=== PATIENT | male | born 1980 | race American Indian/Alaskan Native ===

== ENCOUNTER 2025-09-26 19:56 | Emergency (ER) | payer MEDICARE, MEDICAID, SELFPAY ==
[2025-09-26 19:56] VITALS: BMI 36.3
[2025-09-26 21:18] VITALS: BP 166/104; PULSE 65; RESP 20; TEMP 36.9; O2SAT 98
--- NOTE | 2025-09-26 21:54 | XR_ITS ---
Examination: CT chest, without intravenous contrast. CT abdomen, without intravenous contrast. CT pelvis, without intravenous contrast. 2-D sagittal and coronal reconstructions. 3-D reconstructions. Date and time of exam: September 26, 2025, 10:23 p.m. INDICATIONS: Right-sided pain and bulge beginning 1 month ago CTDI vol (mgy) 12.3 DLP (MGycm) 989 Technique: Multiple CT images, 3.0 mm slice thickness, obtained chest, abdomen, pelvis, with the high-resolution 64 slice scanner.. Sagittal and coronal 2-D reconstructions are obtained. 3-D reconstructions Low dose protocols were performed. One or more of the following dose reduction techniques were used; automated exposure control, adjustment of the mA and/or KV according to patient size, use of iterative reconstruction technique. Findings: No thoracic aortic aneurysmal dilatation Pulmonary artery segments are not enlarged. No paratracheal tracheobronchial or bronchopulmonary adenopathy No visualized liver or splenic lesion Contracted gallbladder No pancreatic or adrenal mass Mild renal scar formation, no hydronephrosis or renal calculi No bowel obstruction Normal appendix No diverticulitis No prostatomegaly Bladder intact Moderate disc narrowing L5-S1 IMPRESSION: No acute process in the chest Mild renal scar formation, no hydronephrosis or renal calculi Normal appendix No bowel obstruction diverticulitis or free air Suggest Ultrasil soft tissue follow-up of any palpable mass anterior abdomen
--- NOTE | 2025-09-26 21:54 | XR_ITS ---
EXAMINATION: PA chest single view TECHNIQUE: Upright PA chest single view Date and time: April 26 25, 2158 hours INDICATIONS: Onset shortness of breath today. FINDINGS: Mild prominence left ventricle No pneumonia or pulmonary edema. Intact osseous structures IMPRESSION: No active disease
--- NOTE | 2025-09-26 21:54 | EKG_ITS ---
[facility] Test Date: 2025-09-26 Pat Name: CR HENDRIX Department: Room: - Gender: Male [employer] Maintenance: : 1980 Requested By: Andres Thomas Order Number: [id number] Reading MD: Andres Thomas Measurements Intervals [place] Rate: 61 P: -3 MO: 204 QRS: -9 QRSD: 114 T: -11 QT: 406 QTc: 410 Interpretive Statements SINUS RHYTHM POSSIBLE ANTERIOR MYOCARDIAL INFARCTION , OF INDETERMINATE AGE [30 ms Q WAVE IN V3/V4, OR R < 0.2 mV IN V4] No previous ECG available for comparison /[id number]/[email or web address]/[id number].pdf
--- NOTE | 2025-09-26 21:54 | XR_ITS ---
Examination: CT brain head without contrast. 2-D sagittal coronal reconstructions Date and time of exam: September 26, 2025, 10:20 p.m. INDICATIONS: Altered mental status beginning 2 weeks ago CTDI: vol (mGy): 50 DLP: (mGycm): 1023 Technique: Multiple CT axial sections of the brain have been obtained, 5 mm slice thickness. Contrast has not been administered. 2-D sagittal, coronal reconstructions have been obtained Low dose protocols were performed. One or more of the following dose reduction techniques were used; automated exposure control, adjustment of the mA and/or KV according to patient size, use of iterative reconstruction technique. Findings: No significant ventricular enlargement. Intra-axial or extra-axial hemorrhage density is not seen. No mass effect or midline shift Basal cisterns are not remarkable. Fourth ventricle is midline. Cranial vault intact. Impression: Negative for acute hemorrhage, mass effect or midline shift Advise clinical correlation and follow-up accordingly
--- NOTE | 2025-09-26 21:54 | XR_ITS ---
Examination: Abdomen sonogram, Limited Date and time of exam: September 26, 2025, 10 0 5:00 p.m. INDICATIONS: Right upper abdominal pain and tenderness distention 2 days Technique: Real-time hare scale transabdominal sonographic images of the upper abdomen obtained. Findings: Normal gallbladder Normal common bile duct 0.5 cm Pancreatic head 2.8 cm Liver 18.9 cm fatty infiltration Normal hepatopetal portal venous flow Patent IVC IMPRESSION: Normal gallbladder Moderate hepatomegaly fatty infiltration
--- NOTE | 2025-09-26 21:55 | EDNOTE_ITS ---
ED Abdominal Pain RME/HPI General Chief Complaint: Abdominal Pain Stated complaint: RUQ PAIN Time seen by provider: 09/26/25 22:19 Arrival date/time: 09/26/25 19:56 RME / HPI RME / HPI narrative: See MDM for Dr. Romero's HPI Documentation. Related Data Allergies Allergy/AdvReac Type Severity Reaction Status Date / Time No Known Allergies Allergy Verified 11/20/23 07:30 Review of Systems Review of Systems Systems Reviewed: All systems reviewed, normal except as documented Past Medical History Social History SMOKING STATUS: Former smoker ED Exam Narrative Physical exam: See MDM for Dr. Romero's Physical Exam Documentation. Course Quality Measures none Orders Category Date Time Status Bedside COVID-19 Antigen Test NOW Care 09/26/25 21:53 Completed Bedside Influenza A&B Antigen Test NOW Care 09/26/25 21:53 Completed EKG (ED ONLY) *Do not use* NOW Care 09/26/25 21:54 Completed Saline [Insert IV] NOW Care 09/26/25 21:[address] chest abdomen pelvis wo Stat Exams 09/26/25 21:[address] head/brain wo con Stat Exams 09/26/25 21:54 Completed EKG (ED Only) Stat Exams 09/26/25 21:54 Draft US gall bladder Stat Exams 09/26/25 21:54 Completed XR chest 1V portable Stat Exams 09/26/25 21:54 Completed Alcohol, Blood Medical Stat Lab 09/26/25 22:35 Completed Ammonia Stat Lab 09/26/25 22:35 Completed Amylase Stat Lab 09/26/25 22:35 Completed BNP [B-Type Natriuretic Peptide] Stat Lab 09/26/25 22:35 Completed Bilirubin,Direct Stat Lab 09/26/25 22:35 Completed CBC Stat Lab 09/26/25 22:35 Completed CK [Creatine Kinase] Stat Lab 09/26/25 22:35 Completed CMP [Comprehensive Metabolic Panel] Stat Lab 09/26/25 22:35 Completed Drug Screen,Urine Stat Lab 09/27/25 00:12 Completed Hemoglobin A1C [Glycohemoglobin w (eAG)] Stat Lab 09/26/25 22:35 Completed Lipase Stat Lab 09/26/25 22:35 Completed Magnesium Stat Lab 09/26/25 22:35 Completed PT [Prothrombin Time with INR] Stat Lab 09/26/25 22:35 Completed PTT [Partial Thromboplastin Time] Stat Lab 09/26/25 22:35 Completed TSH [Thyroid Stimulating Hormone] Stat Lab 09/26/25 22:35 Completed Troponin I Stat Lab 09/26/25 22:35 Completed UA, C/S IF [Urinalysis, C/S if Indicated] Stat Lab 09/27/25 00:12 Completed VBG [Venous Blood Gas] Stat Lab 09/26/25 22:35 Completed Albuterol/Ipratr Rt Shweta [Duoneb Rt Shweta] Med 09/26/25 21:55 Discontinued 3 ml INH X1 ONE Ketorolac Inj [Toradol Inj] Med 09/26/25 21:53 Discontinued 30 mg IVP X1 ONE LORazepam [Ativan Inj] Med 09/26/25 21:53 Discontinued 2 mg IVP X1 ONE MethylPREDNISolone.* [SoluMEDROL Inj] Med 09/26/25 21:55 Discontinued 125 mg IVP X1 ONE Ondansetron Inj [Zofran Inj] Med 09/26/25 21:53 Discontinued 4 mg IVP X1 ONE POTASSIUM CHL 10% Liq 15 ML Med 09/26/25 23:30 Discontinued 40 meq PO X1 ONE Ringers Lactated 1000 ml [Lactated Ringers] 1,000 ml Med 09/26/25 23:30 Discontinued IV 1,000 mls/hr Sodium Chloride 0.9% 1000 ml [Ns] 1,000 ml Med 09/26/25 21:53 Discontinued IV 999 mls/hr Thiamine Inj [Vitamin B-1 Inj] Med 09/26/25 21:53 Discontinued 100 mg IVP X1 ONE Vital Signs Vital signs: Vital Signs Temperature 98.4 F 09/26/25 21:18 Pulse Rate 65 09/26/25 21:18 Respiratory Rate 20 09/26/25 21:18 Blood Pressure 166/104 H 09/26/25 21:18 Pulse Oximetry (%) 98 09/26/25 21:18 Oxygen Delivery Method Room Air 09/26/25 21:18 Abdominal Pain MDM MDM Narrative MDM Narrative:: This section includes all my notes and documentations, including HPI, PE, and ED course. Andres Romero MD HPI: 45 y/o male with Hx of Alcohol Dependence here with multiple concerns. He has trouble describing his symptoms. Including the onset and exacerbating factors and relieving factors and quality and quantity of the symptoms. Admits to drinking alcohol heavily and regularly. But didn't drink for about a week. He is concerned about radon exposure from neighborhood water a few weeks ago. His symptoms include headache and dizziness and chest pain and shortness of breath abdominal pain. No seizures. No hallucinations. No shaking. No other complaints. ROS: All negative except as documented in HPI. Physical Exam: General: Alert and oriented. No acute distress. Eyes: Conjunctivae and lids clear. EOMI. PERRL. ENT: No nasal congestion. Pharynx normal. Tympanic membrane normal bilaterally. Neck: Supple. No carotid bruit. No JVD. Heart: RRR. Lungs: No respiratory distress. Good air movement with scattered rhonchi. Chest: No tenderness. Abdomen: Soft with equivocal tenderness, difficult to localize. Normal bowel sounds. No distension. No rebound or guarding. Back: No CVA tenderness. Legs: No clubbing, cyanosis, edema. Skin: Warm and dry. Neuro: Alert and oriented X 3. Cranial Nerves II-XII grossly intact. No peripheral motor deficits. Musculoskeletal: All major joints and bones are not tender with no limited ROM. I reviewed all diagnostic test results: My interpretation of the EKG is: Sinus rhythm (61 bpm) with nonspecific ST-T changes. My interpretation of the chest x-ray is: NAD. My review of the Head/Brain CT report is: No acute findings. My review of the Chest/Abdomen/Pelvis CT report is: NAD. My review of the Gallbladder US report is: NAD. Blood tests and urine tests Covid/Influenza: Negative. At this point, diagnoses include: Alcohol Abuse Treatment here included: IVF Zofran 4 mg IV Toradol 30 mg IV Ativan 2 mg IV Thiamine 100 g IV Solu-Medrol 125 mg IV DuoNeb He felt much better. I discussed the case with our hospitalist.? About the presentation and exam and diagnostics and treatments here.? And need of further care in the hospital.? Recommended outpatient care. Based on my best medical judgment, made decision no further evaluation or treatment indicated at this time. Patient understands and agrees to the discharge instructions customized and printed, see below. Discharge Instructions from Dr. Romero printed for you: 1.? After extensive evaluation, there is no life-threatening condition.? Such as stroke or brain tumor or heart attack or pulmonary embolism (blood clots in your lungs) or pneumothorax (collapsed lung). 2.? Your symptoms are mostly due to alcohol abuse. Congratulations for not drinking for a week. 3.? Eat regular nutritious meals. For good hydration, increase oral fluid and maintain clear urine.? If dark or yellow, increase oral fluid. 4.? Take multivitamin and folic acid 1 mg and thiamine 50 mg every day as prescribed. 5.? Take [id number] omeprazole every morning and famotidine every evening as needed for upper abdominal pain 6.? See a private doctor on 09/28/2020 for recheck and further care. Ask for help to quit alcohol without alcohol withdrawal. Ask to review all test results and official radiology reports, to make sure you receive all necessary follow-ups and monitoring. To make sure there is no serious intra-abdominal condition, ask for help with more investigation not available here in the ER.? Such as EGD or scoping the stomach, colonoscopy or scoping the colon, and referral to see gastroenterolog ist. 7.? Seek immediate medical care with worsening or with any concerns. Andres Romero MD Patient data External records reviewed:: [facility] previous records (Reviewed prior ED records from 11/20/23. Patient was seen for Acute streptococcal pharyngitis.) Clinical information provided by:: patient Social determinants that could affect healthcare access:: alcohol use Patient has the following chronic illnesses:: None reported How is presenting disease/condition affected by chronic disease/condition?: no chronic disease Evaluation data The following diagnostics were reviewed and interpreted by me:: lab results, radiology exam(s) and EKG tracing(s) (My interpretation of the EKG is: Sinus rhythm (61 bpm) with nonspecific ST-T changes. Andres Romero MD) Lab and/or radiology exams considered but not ordered:: None Interpretation Summary: I reviewed all diagnostic test results: My interpretation of the EKG is: Sinus rhythm (61 bpm) with nonspecific ST-T changes. My interpretation of the chest x-ray is: NAD. My review of the Head/Brain CT report is: No acute findings. My review of the Chest/Abdomen/Pelvis CT report is: NAD. My review of the Gallbladder US report is: NAD. Blood tests and urine tests Covid/Influenza: Negative. Medications / Prescriptions Medications or Prescriptions considered but not ordered:: None Medication administrations:: Medication Administration History Discontinued Medications Albuterol/Ipratropium (Albuterol/Ipratropium (Duoneb) Rt Shweta 3 Ml Nebu) 3 ml INH X1 ONE Stop: 09/26/25 21:56 Last Admin: 09/26/25 23:14 Dose: 3 ml Documented By: DARIA Sodium Chloride (Ns) 1,000 mls @ 999 mls/hr IV .Q1H1M ONE Stop: 09/26/25 22:53 Last Infusion: 09/27/25 00:07 Dose: Infused Documented By: Admin: 09/26/25 22:55 Dose: 999 mls/hr Documented By: YURY Lactated Ringer's (Lactated Ringers) 1,000 mls @ 1,000 mls/hr IV .Q1H ONE Stop: 09/27/25 00:29 Last Infusion: 09/27/25 02:29 Dose: Infused Documented By: Admin: 09/27/25 00:12 Dose: 1,000 mls/hr Documented By: EE Ketorolac Tromethamine (Ketorolac Inj 30 Mg/Ml Vial) 30 mg IVP X1 ONE Stop: 09/26/25 21:54 Last Admin: 09/26/25 22:56 Dose: 30 mg Documented By: EE Lorazepam (Lorazepam 2 Mg/Ml Vial) 2 mg IVP X1 ONE Stop: 09/26/25 21:54 Last Admin: 09/26/25 22:56 Dose: 2 mg Documented By: EE Methylprednisolone Sodium Succinate (Methylprednisolone Sod Succ 62.5 Mg/Ml 2ml Vial) 125 mg IVP X1 ONE Stop: 09/26/25 21:56 Last Admin: 09/26/25 22:56 Dose: 125 mg Documented By: EE Ondansetron HCl (Ondansetron Inj 2 Mg/Ml Inj 2 Ml) 4 mg IVP X1 ONE; Protocol Stop: 09/26/25 21:54 Last Admin: 09/26/25 22:56 Dose: 4 mg Documented By: EE Potassium Chloride (Potassium Chloride 10% 20 Meq/15 Ml Udc) 40 meq PO X1 ONE Stop: 09/26/25 23:31 Last Admin: 09/27/25 00:12 Dose: 40 meq Documented By: EE Thiamine HCl (Thiamine Inj 100 Mg/Ml Vial 2 Ml) 100 mg IVP X1 ONE Stop: 09/26/25 21:54 Last Admin: 09/26/25 22:57 Dose: 100 mg Documented By: YURY Treatment here included: IVF Zofran 4 mg IV Toradol 30 mg IV Ativan 2 mg IV Thiamine 100 g IV Solu-Medrol 125 mg IV DuoNeb Consultations Consultation(s) initiated? (list below): Yes Consultation #1 (Physician, Specialty, Details): I discussed the case with our hospitalist.? About the presentation and exam and diagnostics and treatments here.? And need of further care in the hospital.? Recommended outpatient care. Time: Diagnosis Differential diagnosis abdominal pain: acute appendicitis, calculus of kidney, constipation, diverticulitis, gastroenteritis, pancreatitis and small bowel obstruction Most likely diagnosis given after review of the tests above:: Alcohol Abuse Admission Indicated Admission indicated?: not indicated Explain why admission is indicated or not indicated:: With significant improvement and no condition needing emergent intervention, there was no indication for admission. Admission Request Was there a request for admission?: No Disposition Plan Disposition Plan: Discharge Discharge Attestation Discharge Attestation: The patient and all family members were given an opportunity to ask questions and understood the discharge instructions. Discharge instructions specifically effects, indications for sooner follow up or return to the emergency department, and the expected course of current diagnosis. Patient condition: Stable Discharge Plan Plan Patient Disposition: HOME (Self Care) Prescriptions/Referrals Referrals: No Primary/Family,Physician [Primary Care Provider] - In 1 week Problem List Clinical Impression: Alcohol abuse Patient/Caregiver Discharge Instructions Discharge Activity: activity as tolerated Education Materials: ED Alcohol Abuse Additional Instructions: Discharge Instructions from Dr. Romero printed for you: 1.? After extensive evaluation, there is no life-threatening condition.? Such as stroke or brain tumor or heart attack or pulmonary embolism (blood clots in your lungs) or pneumothorax (collapsed lung). 2.? Your symptoms are mostly due to alcohol abuse. Congratulations for not drinking for a week. 3.? Eat regular nutritious meals. For good hydration, increase oral fluid and maintain clear urine.? If dark or yellow, increase oral fluid. 4.? Take multivitamin and folic acid 1 mg and thiamine 50 mg every day as p rescribed. 5.? Take [id number] omeprazole every morning and famotidine every evening as needed for upper abdominal pain 6.? See a private doctor on 09/28/2020 for recheck and further care. Ask for help to quit alcohol without alcohol withdrawal. Ask to review all test results and official radiology reports, to make sure you receive all necessary follow-ups and monitoring. To make sure there is no serious intra-abdominal condition, ask for help with more investigation not available here in the ER.? Such as EGD or scoping the stomach, colonoscopy or scoping the colon, and referral to see g astroenterologist. 7.? Seek immediate medical care with worsening or with any concerns. Print Language: Wolof Stand Alone Forms: Kalina Award Info., Patient Portal Info Letter
[2025-09-26 22:42] LABS: Base Excess, Venous 3 (-3-3); O2 Saturation, Venous 89 % (96-97); PCO2, Venous 33 mmHg (36-56); PO2, Venous 47 mmHg (15-58); pH, Venous 7.50 (7.33-7.66)
[2025-09-26 22:46] LABS: Basophils # (Auto) 0.1 Thou/mm3 (0.0-0.2); Basophils % (Auto) 2 % (0-2.5); Eosinophils # (Auto) 0.6 Thou/mm3 (0.0-0.5); Eosinophils % (Auto) 7 % (0-10); Hematocrit 50.3 % (41.0-53.0); Hemoglobin 18.6 g/dL (13.5-16.0); Immature Granulocytes Auto 0.02 Thou/mm3 (0.00-0.00); Lymphocytes # (Auto) 2.5 Thou/mm3 (1.0-4.8); Lymphocytes % (Auto) 30 % (10-50); Mean Corpuscular HGB Conc 37.0 g/dl (31.0-37.0); Mean Corpuscular Hemoglobin 33.8 pg (25.0-35.0); Mean Corpuscular Volume 91 fL (80-100); Monocytes # (Auto) 0.9 Thou/mm3 (0.0-0.8); Monocytes % (Auto) 11 % (0-12); Neutrophils # (Auto) 4.2 Thou/mm3 (1.8-7.7); Neutrophils % (Auto) 50 % (37-80); Nucleated Red Blood Cell # 0.00 Thou/mm3 (0.00-0.00); Nucleated Red Blood Cell % 0 /100 WBC (0); Platelet Count 280 Thou/mm3 (140-440); RDW Standard Deviation 43.8 fL (35.1-43.9); Red Blood Count 5.51 Miln/mm3 (4.50-5.90); White Blood Count 8.5 Thou/mm3 (3.8-10.6)
[2025-09-26] MEDS: SODIUM CHLORIDE 0.9% 1000 ML 1,000 ML 999 ML IV (22:55)
[2025-09-26] MEDS: MethylPREDNISolone SOD SUCC 62.5 MG/ML 2ML VIAL 125 MG IVP (22:56)
[2025-09-26] MEDS: LORazepam 2 MG/ML VIAL IVP (22:56)
[2025-09-26] MEDS: ONDANSETRON INJ 2 MG/ML INJ 2 ML 4 MG IVP (22:56)
[2025-09-26] MEDS: KETOROLAC INJ 30 MG/ML VIAL IVP (22:56)
[2025-09-26] MEDS: THIAMINE INJ 100 MG/ML VIAL 2 ML IVP (22:57)
[2025-09-26 23:00] VITALS: BP 192/142; PULSE 69; RESP 18; TEMP 36.7; O2SAT 98
[2025-09-26 23:00] LABS: INR 1.1 (0.9-1.3); Partial Thromboplastin Time 28.2 Seconds (22.0-36.0); Prothrombin Time 11.4 Seconds (9.0-12.2)
[2025-09-26 23:08] LABS: Glucose Estimated Average 108 mg/dL (80-131); Hemoglobin A1C 5.4 % Hgb (4.8-6.0)
[2025-09-26 23:09] LABS: B-Type Natriuretic Peptide < 20 pg/mL (0-100)
[2025-09-26 23:12] LABS: Ammonia < 10 uMol/L (11-32)
[2025-09-26 23:14] LABS: Alanine Aminotransferase 36 U/L (10-49); Albumin, Serum 4.4 gm/dL (3.5-5.0); Albumin/Globulin Ratio 1.5 (1.2-2.2); Alcohol, Blood Medical < 3.0 mg/dL (0-10.0); Alkaline Phosphatase 69 U/L (46-116); Amylase 81 U/L (30-118); Anion Gap 10 (7-16); Aspartate Amino Transferase 27 U/L (0-34); BUN/Creatinine Ratio 11 Ratio (12-20); Bilirubin,Direct 0.2 mg/dL (0.0-0.3); Bilirubin,Total 1.0 mg/dL (0.3-1.2); Blood Urea Nitrogen 10 mg/dL (9-23); Calcium 9.2 mg/dL (8.3-10.6); Calcium (Corrected) 9.2 mg/dL (8.5-10.1); Carbon Dioxide 25.6 mMol/L (20.0-31.0); Chloride 105 mMol/L (98-107); Creatine Kinase 66 U/L (34-171); Creatinine (Component) 0.9 mg/dL (0.6-1.3); Estimated Creatinine Clearance 146.5 mL/min (>60); Globulin 3.0 gm/dL (2.3-3.5); Glucose 106 mg/dL (74-106); Lipase 27 U/L (12-53); Magnesium 1.9 mg/dL (1.6-2.6); Osmolality,Calculated 280 (275-295); Potassium 3.1 mMol/L (3.4-5.1); Sodium 141 mMol/L (136-145); Thyroid Stimulating Hormone 4.42 uIU/mL (0.55-4.78); Total Protein 7.4 gm/dL (5.7-8.2); Troponin I < 0.020 ng/mL (0.0-0.045); eGFR > 60 See Note
[2025-09-26] MEDS: ALBUTEROL/IPRATROPIUM (Duoneb) RT SOL 3 ML NEBU INH (23:14)
[2025-09-26 23:15] VITALS: PULSE 69; RESP 20; O2SAT 99
[2025-09-27] MEDS: POTASSIUM CHLORIDE 10% 20 MEQ/15 ML UDC 40 MEQ PO (00:12)
[2025-09-27] MEDS: RINGERS LACTATED 1000 ML 1,000 ML IV (00:12)
[2025-09-27 00:13] VITALS: BP 143/86; PULSE 66; RESP 18; O2SAT 95
[2025-09-27 00:45] LABS: Collection Type, Urine Clean Catch; Squamous Epithelial Cell,Urine 0 /hpf (0-5)
[2025-09-27 00:54] LABS: Bilirubin,Urine Negative (Negative); Blood,Urine Negative (Negative); Clarity,Urine Clear (Clear/Hazy); Color,Urine Lt-Yellow (Lt Yel-Yel); Culture Indicated,Urine Not Indicated; Glucose, Urine Negative (Negative); Ketones,Urine Negative (Negative); Leukocyte Esterase,Urine Negative (Negative); Nitrite,Urine Negative (Negative); PH,Urine 6.0 (5.0-7.0); Protein,Urine Negative (Neg - Trace); RBC,Urine 1 /hpf (0-3); Specific Gravity,Urine 1.022 (1.001-1.035); Urobilinogen,Urine Negative mg/dL (0.0-1.0); WBC,Urine < 1 /hpf (0-5)
[2025-09-27 00:58] LABS: Amphetamine/Methamp Scrn,U Negative (Negative); Barbiturate Screen,Urine Negative (Negative); Benzodiazepines Screen,Urine Negative (Negative); Benzoylecgonine Screen, Ur Negative (Negative); Fentanyl Screen,Urine Negative (Negative); Opiate Screen,Urine Negative (Negative); THC Screen,Urine Positive (Negative)
[2025-09-27 02:29] VITALS: BP 142/95; PULSE 73; RESP 18; TEMP 37.2; O2SAT 97
[2025-09-27 02:34] VITALS: RESP 16
== END 2025-09-27 02:36 | disposition home or self-care (01) ==
PROVIDERS: Emergency Provider Emergency Medicine
DX: F10.10 Alcohol abuse, uncomplicated (principal); R06.02 Shortness of breath; R41.82 Altered mental status, unspecified; R10.11 Right upper quadrant pain; R94.31 Abnormal electrocardiogram [ECG] [EKG]; Y90.0 Blood alcohol level of less than 20 mg/100 ml
CPT/HCPCS: 36415; 70450; 71045; 71250; 74176; 76705; 80053; 80307; 80320; 81001; 82140; 82150; 82248; 82550; 82803; 83036; 83690; 83735; 83880; 84443; 84484; 85025; 85610; 85730; 87502; 87635; 93005; 94640; 96361; 96374; 96375; 99284; A9270; J1885; J2060; J2405; J2919; J3411; J7030; J7120; G0480